=== PATIENT | female | born 1945 | race Caucasian/White ===

== ENCOUNTER → 2019-12-09 10:42 | Outpatient (BNVA) | payer MEDICARE, OTHER, SELFPAY | PROVIDERS: Referring Provider Internal Medicine Rheumatology; Visit Provider Internal Medicine Rheumatology | DX: M06.09 Rheumatoid arthritis without rheumatoid factor, multiple sites (principal); Z79.899 Other long term (current) drug therapy | CPT/HCPCS: 36415; 82310; 82565; 84460; 85651; 86140 ==

== ENCOUNTER → 2019-12-09 11:31 | Outpatient (BNVA) | payer MEDICARE, OTHER, SELFPAY | PROVIDERS: Referring Provider Internal Medicine Rheumatology; Visit Provider Internal Medicine Rheumatology | DX: M06.09 Rheumatoid arthritis without rheumatoid factor, multiple sites (principal) | CPT/HCPCS: 85025 ==

== ENCOUNTER 2019-12-17 12:39 | Outpatient (CLI) | payer MEDICARE, OTHER, SELFPAY ==
[2019-12-17 12:56] VITALS: BP 181/83; PULSE 85; RESP 18; TEMP 36.8; O2SAT 93
[2019-12-17] MEDS: denosumab 60 mg SDV SUBCUT (13:04)
[2019-12-17 13:30] VITALS: BP 170/86; PULSE 80; RESP 18; TEMP 36.8; O2SAT 95
== END 2019-12-17 12:40 | disposition home or self-care (01) ==
LOC: RHEOACUTE 12:40
PROVIDERS: Visit Provider Internal Medicine Rheumatology
DX: M81.0 Age-related osteoporosis without current pathological fracture (principal)
CPT/HCPCS: 96372; J0897

== ENCOUNTER → 2020-06-30 10:43 | Outpatient (BNVA) | payer MEDICARE, OTHER, SELFPAY | PROVIDERS: Visit Provider Internal Medicine Rheumatology | DX: Z79.899 Other long term (current) drug therapy (principal) | CPT/HCPCS: 36415; 80053; 85025; 85651; 86140 ==

== ENCOUNTER 2020-07-06 15:02 | Outpatient (CLI) | payer MEDICARE, OTHER, SELFPAY ==
[2020-07-06 16:01] VITALS: BP 173/75; PULSE 92; RESP 18; TEMP 36.7; O2SAT 96
[2020-07-06] MEDS: denosumab 60 mg SDV SUBCUT (16:15)
[2020-07-06 16:38] VITALS: BP 183/94; PULSE 101; RESP 16; TEMP 37
[2020-07-06 16:51] VITALS: BP 176/88; PULSE 88; RESP 18; O2SAT 96
--- NOTE | 2020-07-06 16:52 | PC.NURSE ---
Discussed elevated BP with pt. Pt states she has not been taking it at home but will start taking it and will f/u with PCP if continues to be elevated.
== END 2020-07-06 15:03 | disposition home or self-care (01) ==
LOC: RHEOACUTE 15:03
PROVIDERS: Visit Provider Internal Medicine Rheumatology
DX: M06.00 Rheumatoid arthritis without rheumatoid factor, unspecified site (principal); M81.0 Age-related osteoporosis without current pathological fracture; F17.210 Nicotine dependence, cigarettes, uncomplicated
CPT/HCPCS: 96372; 99213; J0897

== ENCOUNTER → 2021-01-04 09:39 | Outpatient (BNVA) | payer MEDICARE, OTHER, SELFPAY | PROVIDERS: PCP Family Medicine; Visit Provider Internal Medicine | DX: M06.00 Rheumatoid arthritis without rheumatoid factor, unspecified site (principal); D86.9 Sarcoidosis, unspecified; Z79.899 Other long term (current) drug therapy; M81.0 Age-related osteoporosis without current pathological fracture; F17.210 Nicotine dependence, cigarettes, uncomplicated | CPT/HCPCS: 36415; 99214 ==

== ENCOUNTER 2021-01-17 13:33 | Outpatient (CLI) | payer MEDICARE, OTHER, SELFPAY ==
[2021-01-17 13:50] VITALS: BP 169/80; PULSE 68; RESP 17; TEMP 36.6; O2SAT 94
[2021-01-17] MEDS: denosumab 60 mg SDV SUBCUT (13:50)
== END 2021-01-17 13:34 | disposition home or self-care (01) ==
LOC: ONCMED 13:37
PROVIDERS: PCP Family Medicine; Visit Provider Internal Medicine
DX: M81.0 Age-related osteoporosis without current pathological fracture (principal); M06.00 Rheumatoid arthritis without rheumatoid factor, unspecified site
CPT/HCPCS: 36415; 80053; 82306; 85025; 86140; 96372; J0897

== ENCOUNTER 2021-07-26 12:54 | Outpatient (CLI) | payer MEDICARE, OTHER, SELFPAY ==
[2021-07-26 14:21] LABS: Calcium 10.2 mg/dL (8.5-10.5)
[2021-07-26 14:38] LABS: 25 Hydroxy Vitamin D 67 ng/mL (30-100)
[2021-07-26 14:44] VITALS: BP 167/89; PULSE 96; RESP 18; TEMP 36.4; O2SAT 96
[2021-07-26] MEDS: denosumab 60 mg SDV SUBCUT (14:50)
[2021-07-26 15:01] VITALS: BP 138/84; PULSE 102; RESP 18; TEMP 36.3; O2SAT 95
== END 2021-07-26 12:55 | disposition home or self-care (01) ==
PROVIDERS: PCP Family Medicine; Referring Provider Internal Medicine; Visit Provider Internal Medicine Rheumatology
DX: M81.0 Age-related osteoporosis without current pathological fracture (principal); E83.32 Hereditary vitamin D-dependent rickets (type 1) (type 2); Z79.899 Other long term (current) drug therapy
CPT/HCPCS: 36415; 82040; 82306; 82310; 82565; 96372; J0897

== ENCOUNTER → 2022-01-03 14:39 | Outpatient (BNVA) | payer MEDICARE, OTHER, SELFPAY | PROVIDERS: PCP Family Medicine; Visit Provider Internal Medicine | DX: M06.00 Rheumatoid arthritis without rheumatoid factor, unspecified site (principal); M81.0 Age-related osteoporosis without current pathological fracture; Z79.899 Other long term (current) drug therapy; F17.210 Nicotine dependence, cigarettes, uncomplicated | CPT/HCPCS: 99214 ==

== ENCOUNTER 2022-01-08 08:12 | Outpatient (CLI) | payer MEDICARE, OTHER, SELFPAY ==
[2022-01-08 09:47] LABS: Albumin Level 4.5 g/dL (3.5-5.2); Calcium 10.5 mg/dL (8.5-10.5)
[2022-01-08 10:02] LABS: 25 Hydroxy Vitamin D 94 ng/mL (30-100)
== END 2022-01-08 08:13 | disposition home or self-care (01) ==
PROVIDERS: PCP Family Medicine; Visit Provider Internal Medicine
DX: M81.0 Age-related osteoporosis without current pathological fracture (principal); Z79.899 Other long term (current) drug therapy
CPT/HCPCS: 36415; 82040; 82306; 82310; 82565

== ENCOUNTER 2022-01-24 12:49 | Outpatient (CLI) | payer MEDICARE, OTHER, SELFPAY ==
[2022-01-24 13:11] VITALS: BP 146/85; PULSE 92; RESP 18; TEMP 36.5; O2SAT 92
[2022-01-24] MEDS: denosumab 60 mg SDV SUBCUT (13:34)
[2022-01-24 13:43] VITALS: BP 158/83; PULSE 87; RESP 18; TEMP 36.3; O2SAT 92
== END 2022-01-24 12:50 | disposition home or self-care (01) ==
PROVIDERS: PCP Family Medicine; Visit Provider Internal Medicine
DX: M81.0 Age-related osteoporosis without current pathological fracture (principal)
CPT/HCPCS: 96372; J0897

== ENCOUNTER 2022-02-07 13:19 | Outpatient (CLI) | payer MEDICARE, OTHER, SELFPAY ==
--- NOTE | 2022-02-07 13:30 | XR_ITS ---
WS: [id number] SCREENING DEXA SCAN [facility] CLINICAL INFORMATION: M81.0 - Age-related osteoporosis without current patholog... COMPARISON: FINDINGS: The L1-L4 bone mineral density measures 1.430 g/cm2. This corresponds to a T score score of 2.1 and Z score of 2.8. Left femoral neck bone mineral density measures 0.916 g/cm2. This corresponds to a T score of -0.7 an d Z score of 0.4. Right femoral neck bone mineral density measures 0.896 g/cm2. This corresponds to a T score -0.9of an d Z score of 0.2. Mean femoral neck bone mineral density measures 0.906 g/cm2. This corresponds to a T score of -0.8 an d Z score of 0.3. XR/XR DEXA axial skeleton* 31362 IMPRESSION: Normal bone mineralization. Patient's FRAX calculated 10 year probability for major osteoporotic fracture i s 26.0 % and osteoporotic hip fracture is 10.7%.
== END 2022-02-07 13:20 | disposition home or self-care (01) ==
PROVIDERS: PCP Family Medicine; Visit Provider Internal Medicine
DX: M81.0 Age-related osteoporosis without current pathological fracture (principal); M06.00 Rheumatoid arthritis without rheumatoid factor, unspecified site; Z79.899 Other long term (current) drug therapy
CPT/HCPCS: 77080

== ENCOUNTER 2022-07-11 08:31 | Outpatient (CLI) | payer MEDICARE, OTHER, SELFPAY ==
[2022-07-11 09:56] LABS: Basophils # 0.1 10^3/uL (0.0-0.1); Basophils % 0.4 %; Eosinophils # 0.1 10^3/uL (0.0-0.8); Eosinophils % 1.3 %; Hematocrit 38.4 % (37.0-47.0); Hemoglobin 12.4 g/dL (11.5-15.3); Lymphocytes # 2.2 10^3/uL (0.8-4.8); Lymphocytes % 19.9 %; Mean Corpuscular HGB Conc 32.3 g/dL (30.0-36.0); Mean Corpuscular Hemoglobin 32.8 pg (28.0-34.0); Mean Corpuscular Volume 101.6 fl (81-99); Mean Platelet Volume 11.8 fL (7.4-10.4); Monocytes % 8.8 %; Neutrophils % 68.9 %; Nucleated Red Blood Cells % 0 %; Platelet Count 300 10^3/cmm (130-400); Red Blood Count 3.78 10^6/uL (4.1-5.3); Red Cell Distribution Width 12.1 % (12.1-15.1); White Blood Count 11.2 10^3/uL (4.0-10.0)
[2022-07-11 10:24] LABS: Alanine Aminotransferase 30 U/L (0-33); Albumin Level 4.6 g/dL (3.5-5.2); Alkaline Phosphatase 105 U/L (35-105); Anion Gap 18.3 (5-19); Aspartate Amino Transferase 30 U/L (0-32); Blood Urea Nitrogen 32 mg/dL (8-23); Calcium 10.5 mg/dL (8.5-10.5); Carbon Dioxide 24 mmol/L (22-29); Chloride 96 mmol/L (98-107); Glucose 96 mg/dL (65-115); Osmolality Calculated 283 mOsm/kg (285-295); Potassium 5.3 mmol/L (3.5-5.1); Sodium 133 mmol/L (136-145); Total Bilirubin 0.4 mg/dL (0.15-1.2); Total Protein 7.6 g/dL (6.6-8.7)
[2022-07-11 10:47] LABS: Erythrocyte Sedimentation Rate 40 mm/hr (0-15)
== END 2022-07-11 08:32 | disposition home or self-care (01) ==
LOC: LAB 08:35
PROVIDERS: PCP Family Medicine; Visit Provider Internal Medicine
DX: M06.00 Rheumatoid arthritis without rheumatoid factor, unspecified site (principal); M81.0 Age-related osteoporosis without current pathological fracture; Z79.899 Other long term (current) drug therapy
CPT/HCPCS: 80053; 85025; 85651; 86140

== ENCOUNTER 2022-07-24 10:56 | Outpatient (CLI) | payer MEDICARE, OTHER, SELFPAY ==
[2022-07-24 12:00] LABS: Basophils % 0.4 %; Eosinophils # 0.2 10^3/uL (0.0-0.8); Hematocrit 36.2 % (37.0-47.0); Hemoglobin 11.5 g/dL (11.5-15.3); Lymphocytes # 2.9 10^3/uL (0.8-4.8); Lymphocytes % 28.8 %; Mean Corpuscular HGB Conc 31.8 g/dL (30.0-36.0); Mean Corpuscular Hemoglobin 32.8 pg (28.0-34.0); Mean Corpuscular Volume 103.1 fl (81-99); Mean Platelet Volume 11.8 fL (7.4-10.4); Monocytes % 9.4 %; Neutrophils # 5.98 10^3/uL (1.8-7.7); Neutrophils % 58.8 %; Nucleated Red Blood Cells % 0 %; Platelet Count 280 10^3/cmm (130-400); Red Blood Count 3.51 10^6/uL (4.1-5.3); Red Cell Distribution Width 11.9 % (12.1-15.1); White Blood Count 10.2 10^3/uL (4.0-10.0)
[2022-07-24 12:04] LABS: Erythrocyte Sedimentation Rate 22 mm/hr (0-15)
[2022-07-24 12:25] LABS: Alanine Aminotransferase 33 U/L (0-33); Albumin Level 4.1 g/dL (3.5-5.2); Alkaline Phosphatase 91 U/L (35-105); Anion Gap 12.8 (5-19); Aspartate Amino Transferase 35 U/L (0-32); Blood Urea Nitrogen 27 mg/dL (8-23); Calcium 10.3 mg/dL (8.5-10.5); Carbon Dioxide 28 mmol/L (22-29); Chloride 103 mmol/L (98-107); Glucose 97 mg/dL (65-115); Osmolality Calculated 293 mOsm/kg (285-295); Potassium 4.8 mmol/L (3.5-5.1); Sodium 139 mmol/L (136-145); Total Bilirubin 0.3 mg/dL (0.15-1.2); Total Protein 7.1 g/dL (6.6-8.7)
[2022-07-28 12:13] LABS: Vit D 1,25 (Oh)2, Total 35 pg/mL (18-72); Vit D2 1,25 (Oh)2 <8 pg/mL; Vit D3 1,25 (Oh)2 35 pg/mL
== END 2022-07-24 10:57 | disposition home or self-care (01) ==
LOC: LAB 10:59
PROVIDERS: PCP Family Medicine; Visit Provider Internal Medicine
DX: M06.00 Rheumatoid arthritis without rheumatoid factor, unspecified site (principal); M81.0 Age-related osteoporosis without current pathological fracture
CPT/HCPCS: 36415; 80053; 82652; 85025; 85651; 86140

== ENCOUNTER 2022-08-09 12:48 | Outpatient (CLI) | payer MEDICARE, OTHER, SELFPAY ==
[2022-08-09 13:04] VITALS: BP 169/87; PULSE 75; RESP 18; TEMP 36.6; O2SAT 95
[2022-08-09] MEDS: denosumab 60 mg SDV SUBCUT (13:12)
[2022-08-09 13:21] VITALS: BP 175/83; PULSE 84; RESP 18; TEMP 36.7; O2SAT 96
== END 2022-08-09 12:49 | disposition home or self-care (01) ==
PROVIDERS: PCP Family Medicine; Visit Provider Internal Medicine
DX: M06.00 Rheumatoid arthritis without rheumatoid factor, unspecified site (principal); M81.0 Age-related osteoporosis without current pathological fracture; Z79.899 Other long term (current) drug therapy
CPT/HCPCS: 96372; 99214; J0897

== ENCOUNTER → 2022-12-18 09:18 | Outpatient (BNVA) | payer MEDICARE, OTHER, SELFPAY | PROVIDERS: PCP Family Medicine; Visit Provider Internal Medicine | DX: M06.00 Rheumatoid arthritis without rheumatoid factor, unspecified site (principal); M81.0 Age-related osteoporosis without current pathological fracture; Z79.899 Other long term (current) drug therapy; M70.60 Trochanteric bursitis, unspecified hip; Y93.9 Activity, unspecified | CPT/HCPCS: 72100; 73521; 99213 ==